=== PATIENT | male | born 1980 | race Caucasian/White ===

== ENCOUNTER 2019-01-15 15:16 | Emergency (ER) | payer OTHER ==
[~2019-01-15] VITALS: Ht 177.8 cm; Wt 113.4 kg
[2019-01-15 15:18] VITALS: BP 128/86
[2019-01-15] MEDS ORDERED: HYDROcodone/APAP 5/325MG 1 TAB TABLET PO STA (15:29)
[2019-01-15] MEDS ORDERED: ORPHENADRINE CITRATE 60 MG/2 ML VIAL. IM STA (15:29)
[2019-01-15] MEDS ORDERED: ORPH100T PO (15:43)
[2019-01-15] MEDS ORDERED: HYDR-3164 PO (15:43)
--- NOTE | 2019-01-15 15:43 | PHYS DOC ---
Adult General Chief Complaint Chief Complaint: BACK PAIN - NO INJURY HPI HPI Patient is a 38 year old male who presents with with back pain that is radiating down his right leg. The patient states he has a herniated disc that is known and has surgery scheduled for February [address] Guardado at [facility] in [place]. The patient states he has been taking gabapentin and Advil and took 1000 mg of Advil prior to arrival. He states his pain level still 10 out of 10 in severity and sharp. This is the worst the pain is ever been. He states he called his surgeon before arrival and was told to the ER for pain management. He is planning on having the surgery moved up by following up with his doctor this coming week. Review of Systems Review of Systems Constitutional: Denies fever or chills [] Eyes: Denies change in visual acuity, redness, or eye pain [] HENT: Denies nasal congestion or sore throat [] Respiratory: Denies cough or shortness of breath [] Cardiovascular: No additional information not addressed in HPI [] GI: Denies abdominal pain, nausea, vomiting, bloody stools or diarrhea [] : Denies urinary incontinence or changes. Denies dysuria or hematuria [] Musculoskeletal: Reports back pain. Integument: Denies rash or skin lesions [] Neurologic: Denies saddle numbness. Denies headache, focal weakness or sensory changes [] Endocrine: Denies polyuria or polydipsia [] Complete systems were reviewed and found to be within normal limits, except as documented in this note. Current Medications Current Medications Current Medications Medications (Trade) Dose Ordered Sig/[facility] Start Time Stop Time Status Last Admin Dose Admin Acetaminophen/ Hydrocodone Bitart (Lortab 5/325) 1 tab 1X STAT 01/15/19 15:29 01/15/19 15:30 UNV Orphenadrine Citrate (Norflex) 60 mg 1X STAT 01/15/19 15:29 01/15/19 15:30 UNV Allergies Allergies Allergies Coded Allergies Type Severity Reaction Last Updated Verified No Known Drug Allergies 01/15/19 No Physical Exam Physical Exam Constitutional: Well developed, well nourished, no acute distress, non-toxic appearance. [] HENT: Normocephalic, atraumatic, bilateral external ears normal, oropharynx moist, no oral exudates, nose normal. [] Eyes: PERRLA, EOMI, conjunctiva normal, no discharge. [] Neck: Normal range of motion, no tenderness, supple, no stridor. [] Cardiovascular:Heart rate regular rhythm, no murmur [] Lungs & Thorax: Bilateral breath sounds clear to auscultation [] Abdomen: Bowel sounds normal, soft, no tenderness, no masses, no pulsatile masses. [] Skin: Warm, dry, no erythema, no rash. [] Back: Lumbar tenderness with pain to the right side on palpation. Extremities: No tenderness, no cyanosis, no clubbing, ROM intact, no edema. [] Neurologic: Alert and oriented X 3, normal motor function, normal sensory function, no focal deficits noted. [] Psychologic: Affect normal, judgement normal, mood normal. [] EKG EKG [] Radiology/Procedures Radiology/Procedures [] Course & Med Decision Making Course & Med Decision Making Pertinent Labs and Imaging studies reviewed. (See chart for details) Will give [place] in ER and IM Norflex. Performed [employer] search on patient and he has not had a narcotic since 2018. Will write a 3 day script of [place]. Discussed when to return and follow up with surgeon this week. Patient is agreeable to this plan. Dragon Disclaimer Dragon Disclaimer This electronic medical record was generated, in whole or in part, using a voice recognition dictation system. Departure Departure Impression: Primary Impression: Back pain Disposition: 01 HOME, SELF-CARE Condition: STABLE Referrals: NO PCP (PCP) Patient Instructions: Back Pain, Adult Additional Instructions: Thank you for visiting [facility]. We appreciate you trusting us with your care. If any additional problems come up don't hesitate to return to visit us. Please follow up with your primary care provider so they can plan additional care if needed and know about the problem that you had. If symptoms worsen come back to the Emergency Department. Any concerning symptoms that start such as chest pain, shortness of air, weakness or numbness on one side of the body, running high fevers or any other concerning symptoms return to the ER. Please follow up with Dr. Guardado this week. Scripts Hydrocodone/Apap 5-325 (NORCO 5-325 TABLET) 1 Each Tablet 1 TAB PO PRN Q6HRS PRN for PAIN for 3 Days, #12 TAB 0 Refills Please use for break through pain. Do not use unless you have to. Do not drive or operate machinery on this medication. Prov: DANELLE MURPHY APRN 01/15/19 Orphenadrine Citrate (ORPHENADRINE CITRATE) 100 Mg Tablet.er 100 MG PO BID PRN for MUSCLE PAIN for 5 Days, #10 TAB.SR Prov: DANELLE MURPHY APRN 01/15/19 Problem Qualifiers Primary Impression: Back pain Back pain location: low back pain Chronicity: acute Back pain laterality: midline Sciatica presence: with sciatica Sciatica laterality: sciatica of right side Qualified Codes: M54.41 - Lumbago with sciatica, right side DANELLE MURPHY APRN Jan 15, 2019 15:43
== END 2019-01-15 15:47 | disposition home or self-care (01) ==
LOC: ER 15:16
DX: M54.41 Lumbago with sciatica, right side (principal)
CPT/HCPCS: 96372; 99283; J2360